=== PATIENT | male | born 1995 | race Caucasian/White ===

== ENCOUNTER 2021-06-25 18:55 | Emergency (ER) | payer MEDICAID ==
[~2021-06-25] VITALS: Ht 177.8 cm; Wt 75.0 kg
[2021-06-25 20:27] VITALS: BP 124/75
== END 2021-06-25 20:33 | disposition home or self-care (01) ==
LOC: EMS 19:22 → EDSEX 19:22 → EMS 20:33
DX: S16.1XXA Strain of muscle, fascia and tendon at neck level, initial encounter (principal); V43.52XA Car driver injured in collision with other type car in traffic accident, initial encounter; Y93.89 Activity, other specified; Y92.89 Other specified places as the place of occurrence of the external cause; Y99.8 Other external cause status
CPT/HCPCS: 99281; Z7502